=== PATIENT | female | born 1990 | race Caucasian/White ===

== ENCOUNTER 2017-04-17 09:21 | Day surgery (SDC) | payer OTHER ==
--- NOTE | 2017-04-17 09:09 | HISTORY AND PHYSICAL E ---
History and Physical NAME: ROMAN KAPOOR : 1990 AGE: 27Y ADMITTED: 04/17/2017 ROOM: ADMIT DATE: 04/17/2017 The patient complains of nausea and vomiting and abdominal pain . ALLERGIES: Patient allergic to PENICILLIN . PHYSICAL EXAMINATION: VITAL SIGNS: Blood pressure is 110/69. Pulse 88. Respirations 18. Temperature is 99. HEAD, EYES, EARS, NOSE AND THROAT: Normal. ABDOMEN: Soft. NEUROLOGIC EXAM: Negative. CONCLUSIONS: Abdominal pain. PLAN: . DICTATING PHYSICIAN: YASMIN GARCIA M.D. [id number] PHY#: [id number] ID: [id number] JOB#: [id number] ACCT: [id number] cc:YASMIN GARCIA M.D. >
[~2017-04-17 09:21] MED LIST: EPINEPHRINE INJ 1 MG/10 ML DISP.SYRIN ONE; FLUMAZENIL INJ 0.5 MG/5 ML VIAL IV ONE; GLYCOPYRROLATE INJ 0.4 MG/2 ML VIAL ONE; NALOXONE HCL INJ/PF 0.4 MG/1 ML SDV ONE; ONDANSETRON HCL INJ/PF 4 MG/2 ML SDV ONE
[2017-04-17] MEDS: MIDAZOLAM 2 MG/2 ML INJ ONE ×2 (09:47→09:51)
[2017-04-17] MEDS: FENTANYL CITRATE INJ/PF 100 MCG/2 ML AMPUL ONE ×2 (09:49→09:55)
--- NOTE | 2017-04-17 10:34 | OPERATIVE REPORT E ---
Operative Report NAME: ROMAN KAPOOR : 1990 AGE: 27Y DATE OF SURGERY: 04/17/2017 ROOM: PREOPERATIVE DIAGNOSIS: Vomiting, abdominal pain. POSTOPERATIVE DIAGNOSIS: Small hiatus hernia, moderate esophagitis, distal esophageal erosion. OPERATION: Esophagoscopy, gastroscopy, duodenoscopy. SURGEON: YASMIN GARCIA M.D. ANESTHESIA: Versed 4, fentanyl 100. TISSUE REMOVED OR ALTERED: Gastric biopsy. PROCEDURE: Baby scope passed under guided vision, no difficulty. Esophagoscopy: Junction at 38 cm, 3 cm hiatus hernia, multiple erosions, lower esophageal sphincter incompetent. Gastroscopy: Prominent gastric folds, no ulcers, mild gastritis. Duodenoscopy: Duodenal bulb normal. Descending duodenum normal. CONCLUSION: Hiatus hernia, lower esophageal sphincter incompetent, moderate esophagitis. PLAN: Patient to continue on Pantoprazole. Patient consider surgical evaluation for possibility of hernia repair. DICTATING PHYSICIAN: YASMIN GARCIA M.D. [id number] Y#: [id number] ID: [id number] JOB#: [id number] ACCT: [id number] cc:[facility], YASMIN GARCIA M.D. >
--- NOTE | 2017-04-17 10:38 | DISCHARGE SUMMARY E ---
Discharge Summary NAME: ROMAN KAPOOR : 1990 AGE: 27Y ADMITTED: 04/17/2017 DISCHARGED: 04/17/2017 PROCEDURE: EGD with biopsy. HISTORY: A 27-year-old female with reflux, vomiting, abdominal pain. She underwent upper endoscopy today showing reflux, esophagitis, hiatus hernia. 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 Upper scope today is showing no evidence of malignancy, no evidence of ulcers, severe reflux with erosions and esophagitis, and small hiatus hernia and gastritis. MEDICATIONS: 1. Zantac. 2. Zofran. 3. Tramadol. 4. Pantoprazole. 5. Claritin. 6. Carafate. DISCHARGE PLAN: 1. Continue present management. 2. Lab studies. 3. Consider hernia repair. DICTATING PHYSICIAN: YASMIN GARCIA M.D. [id number] PHY#: [id number] ID: [id number] JOB#: [id number] ACCT: [id number] cc:[facility], YASMIN GARCIA M.D. >
[2017-04-17 11:15] VITALS: BP 117/75
[2017-04-17 12:16] LABS: ABSOLUTE BASOPHILS # (AUTO) 0.1 10^3/uL (0.0-0.2); ABSOLUTE EOSINOPHILS # (AUTO) 0.2 10^3/uL (0.0-0.6); ABSOLUTE LYMPHOCYTES (AUTO) 3.6 10^3/uL (0.5-4.7); ABSOLUTE MONOCYTES (AUTO) 0.6 10^3/uL (0.1-1.4); ABSOLUTE NEUT (AUTO) 5.5 10^3/uL (1.7-8.2); EOSINOPHILS % (AUTO) 2.3 % (0-6); HEMATOCRIT 44.5 % (36.0-47.0); HEMOGLOBIN 14.1 g/dL (12.0-15.5); HGB HCT DIFFERENCE -2.2; LYMPHOCYTES % (AUTO) 35.4 % (13-45); MEAN CORPUSCULAR HEMOGLOBIN 28.4 pg (27.0-33.4); MEAN CORPUSCULAR HGB CONC 31.8 g/dL (32.0-36.0); MEAN CORPUSCULAR VOLUME 90 fl (80-97); MONOCYTES % (AUTO) 6.4 % (3-13); RED BLOOD COUNT 4.97 10^6/uL (3.72-5.28); RED CELL DISTRIBUTION WIDTH 13.4 % (11.5-14.0); SEGMENTED NEUTROPHILS % (AUTO) 54.9 % (42-78); WHITE BLOOD COUNT 10.1 10^3/uL (4.0-10.5)
[2017-04-17 12:33] LABS: ALANINE AMINOTRANSFERASE 41 U/L (9-52); ALBUMIN 4.2 g/dL (3.5-5.0); ALKALINE PHOSPHATASE 95 U/L (38-126); AMYLASE 45 U/L (30-110); ANION GAP 11 (5-19); ASPARTATE AMINO TRANSFERASE 21 U/L (14-36); BILIRUBIN,DIRECT 0.2 mg/dL (0.0-0.4); BILIRUBIN,TOTAL 0.5 mg/dL (0.2-1.3); BLOOD UREA NITROGEN 10 mg/dL (7-20); CALCIUM 9.3 mg/dL (8.4-10.2); CARBON DIOXIDE 24 mmol/L (22-30); CHLORIDE 105 mmol/L (98-107); CREATININE RESULT 0.67 mg/dL (0.52-1.25); GLUCOSE 94 mg/dL (75-110); LIPASE 62.6 U/L (23-300); POTASSIUM 4.1 mmol/L (3.6-5.0); SODIUM 140.4 mmol/L (137-145); TOTAL PROTEIN 7.4 g/dL (6.3-8.2)
== END 2017-04-17 11:35 | disposition home or self-care (01) ==
LOC: END 09:21
PROVIDERS: ATTEND Specialist
PROC: 0DB68ZX Excision of Stomach, Via Natural or Artificial Opening Endoscopic, Diagnostic (ICD-10-PCS; principal; 2017-04-17 10:00)
DX: K21.0 Gastro-esophageal reflux disease with esophagitis (principal); K22.10 Ulcer of esophagus without bleeding; K29.50 Unspecified chronic gastritis without bleeding; K44.9 Diaphragmatic hernia without obstruction or gangrene; J45.909 Unspecified asthma, uncomplicated; M47.9 Spondylosis, unspecified; Z79.899 Other long term (current) drug therapy; Z79.891 Long term (current) use of opiate analgesic; Z88.0 Allergy status to penicillin
CPT/HCPCS: 43239; 36415; 82150; 83690; 85025; 80053; 88342 ×2; 88305 ×2; J2250; J3010; J2405; J0171; J2310; J3490

== ENCOUNTER → 2017-04-19 | Outpatient (CLI) | payer OTHER ==
--- NOTE | 2017-04-19 10:35 | RADIOLOGY REPORT (SQ) ---
EXAM DESCRIPTION: NM HIDA SCAN WITH CCK COMPLETED DATE/TIME: 04/19/2017 10:22 am REASON FOR STUDY: RUQ ABDOMINAL SWELLING, MASS AND, LUMP R19.01 RIGHT UPPER QUADRANT ABDOMINAL SWEL LING, MASS AND LUM COMPARISON: None. RADIONUCLIDE AND DOSE: DOSAGE RADIONUCLIDE: 5.45 millicuries Tc99m Mebrofenin. DOSAGE CCK: 1.7 micrograms. DOSAGE MORPHINE: Not required. The route of agent administration: Intravenous TECHNIQUE: Serial imaging right upper quadrant up to 60 minutes following injection of radionuclide. CCK injected after gallbladder visualized. LIMITATIONS: None. FINDINGS: LIVER: Normal visualization without areas of photopenia. INTRAHEPATIC BILE DUCTS: Normal size and no delay in visualization. COMMON BILE DUCT: Normal without dilatation. GALLBLADDER: Normal visualization. Calculated ejection fraction of 65%. Normal range is greater th an 35%. PHYSICAL RESPONSE: Patients presenting complaint was reproduced. OTHER: No other significant finding. IMPRESSION: No evidence of cystic duct or common duct obstruction. Normal gallbladder ejection fraction IV cholecystokinin reproduced the patient's symptoms TECHNICAL DOCUMENTATION: JOB ID: [id number] All Rights Reserved
== END ==
LOC: RAD 07:44
PROVIDERS: ATTEND Specialist
DX: R19.01 Right upper quadrant abdominal swelling, mass and lump (principal)
CPT/HCPCS: 78227; A9537; Q9969; J2805